=== PATIENT | female | born 1980 | race Native Hawaiian/Other Pacific Islander ===

== ENCOUNTER 2022-04-27 09:31 | Outpatient (CLI) | payer OTHER | END 2022-04-27 19:31 | disposition home or self-care (01) | LOC: US 09:31 → EDBD 09:31 → US 19:31 | PROVIDERS: ATTEND Internal Medicine Gastroenterology | DX: B19.20 Unspecified viral hepatitis C without hepatic coma (principal); I10 Essential (primary) hypertension ==